=== PATIENT | female | born 1995 | race Caucasian/White ===

== ENCOUNTER 2016-09-09 13:26 | Emergency (ER) | payer OTHER ==
[2016-09-09 13:36] VITALS: BP 115/71; BMI 20.2
[2016-09-09 14:14] LABS: SERUM PREGNANCY TEST, QUAL NEGATIVE <10 mIU/mL
--- NOTE | 2016-09-09 14:23 | DR.GENAD ---
HPI - HPI Comment HPI Comment: PATIENT HAVE HISTORY OF ENDOMETIOSIS. STARTED HAVING PERIOD TODAY AND LOWER ABDOMINAL PAIN, NO DYSURIA. NO FEVER. MAY BE . NO VAGINAL DISCHARGE. - Complaint/Symptoms Chief Complaint Doctors Comments: LOWER ABDOMINAL PAIN, MAY BE . HISTORY ENDOMETRIOSIS. Chief Complaint:: I have endmetriosis and im having really heavy bleeding and pain at this time i may be - Nurses notes reviewed Nurses Notes Review: Yes - Source History Provided: Patient - Mode of Arrival Mode of Arrival: Ambulatory - Timing Onset of Chief Complaint: 09/09/16 Came on: Suddenly - Duration Duration: Constant Duration: Hours - Severity Severity: Moderate PMH - PMH Past Medical History: Yes Past Medical History Comment: Endmetriosis Past Surgical History: Yes Surgical History: Cholecystectomy - Family History History of Family Medical Conditions: Yes Family Medical History: Heart Failure, Hypertension - Social History Does patient currently use any type of tobacco product: Yes Have you used tobacco products in the last 12 months: Yes Type of Tobacco Use: Cigarettes Does any household member use tobacco: No Alcohol Use: None Do you use any recreational Drugs:: No Lives With: Family Lives Where: Home - infectious screening In the last 2 months have you had wt loss of >10#?: NO Have you had fever, night sweats or hemotysis?: No Have you traveled outside the country in the last 6 months?: No Isolation: Standard ROS - Review of Systems Constitutional: No Symptoms Reported Eyes: No Symptoms Reported ENTM: No Symptoms Reported Respiratoy: No Symptoms Reported Cardiovascular: No Symptoms Reported Gastrointestinal/Abdominal: Abdominal Pain, Nausea Genitourinary: Pain, Bleeding. negative: Dysuria, Frequency, Hematuria Neurological: No Symptoms Reported Musculoskeletal: No Symptoms Reported Integumentary: No Symptoms Reported Hematologic/Lymphatic: No Symptoms Reported Endocrine: No Symptoms Reported All Other Systems: Reviewed and Negative PE - Vital Signs Vitals: Temperature 98.9 F Pulse Rate 88 Respiratory Rate 18 Blood Pressure 115/71 O2 Sat by Pulse Oximetry 98 - General Limitations: No Limitations General Appearance: Alert - Head Head Exam: Normal Inspection - Eyes Eye exam: Normal Appearance - ENT ENT Exam: Normal External Ear Exam External Ear Exam: Normal External Inspection Nose Exam: Normal Nose Exam Mouth Exam: Normal Inspection Throat Exam: Normal Inspection - Neck Neck Exam: Normal Inspection - Chest Chest Inspection: Symmetric Chest Wall Rise - Respiratory Respiratory Exam: Normal Lung Sounds Bilat Respiratory Exam: Bilateral Clear to Auscultation - Cardiovascular Cardiovascular Exam: Regular Rate, Normal Rhythm, Normal Heart Sounds - Abdominal Exam Abdominal Exam: Normal Bowel Sounds, Soft, Tenderness Abdominal Tenderness: RLQ, LLQ, Suprapubic, Moderate - Extremities Extremities Exam: Normal Inspection - Back Back Exam: Normal Inspection - Neurologic Neurological Exam: Alert, Oriented X3 - Psychiatric Psychiatric Exam: Normal Affect, Normal Mood - Skin Skin Exam: Normal Color MDM - Differential Diagnosis Differential Diagnosis: ABDOMINAL PAIN, ENDOMETRIOSIS, UTI Course - Treatment Treatment: SEE ORDERS. - Consultation Consultation Comments: DISCUSS PATIENT WITH TAB MACHINE OPERATOR DR KRAUSE OFFICE. WILL SEE PATIENT 09:00 AM TOMORROW. - Education/Counseling Education/Counseling: Patient, Education Educated On: Diagnosis, Needs for Follow Up ROR - Labs Reviewed Laboratory Results Reviewed?: Yes Laboratory: HCG, Qual Negative <10 mIU/mL 09/09/16 13:56 Specimen Type Clean catch urine 09/09/16 14:30 Urine Color Pale yellow (YELLOW) 09/09/16 14:30 Urine Appearance Clear (CLEAR) 09/09/16 14:30 Urine pH 6.5 (5.0 - 8.0) 09/09/16 14:30 Ur Specific [place] 1.010 (1.000-1.030) 09/09/16 14:30 Urine Protein Negative (NEGATIVE) 09/09/16 14:30 Urine Glucose (UA) Negative (NEGATIVE) 09/09/16 14:30 Urine Ketones Negative (NEGATIVE) 09/09/16 14:30 Urine Occult Blood 4+ (NEGATIVE) 09/09/16 14:30 Urine Nitrite Negative (NEGATIVE) 09/09/16 14:30 Urine Bilirubin Negative (NEGATIVE) 09/09/16 14:30 Urine Urobilinogen Normal (NORMAL) 09/09/16 14:30 Ur Leukocyte Esterase Negative (NEGATIVE) 09/09/16 14:30 Urine RBC 3-4 /HPF (NEGATIVE) 09/09/16 14:30 Urine WBC 0-1 /HPF (NEGATIVE) 09/09/16 14:30 Ur Squamous Epith Cells Moderate /HPF (NEGATIVE) 09/09/16 14:30 Amorphous Sediment Trace /HPF (NEGATIVE) 09/09/16 14:30 Urine Bacteria Trace /HPF (NEGATIVE) 09/09/16 14:30 Ur Culture Indicated? No/not indicated 05/30/17 14:30 - Diagnosis Discharge Problem: Abdominal pain Qualifiers: Abdominal location: lower abdomen, unspecified Qualified Code(s): R10.30 - Lower abdominal pain, unspecified - Discharge Plan Disposition: HOME, SELF-CARE Condition: Stable Prescriptions: Hydrocodone-Acet 5 mg/325 mg [Onset 5/325 mg Tab] 1 tab PO Q6H PRN #12 tab PRN Reason: Pain - Follow ups/Referrals Follow ups/Referrals: [facility],None [Primary Care Provider] - 3 days - Instructions Instructions: Endometriosis Additional Instructions: RETURN TO ED IF WORSE. SEE DR. CORDERO AT 09:00 AM TOMORROW.
[2016-09-09 14:37] LABS: BILIRUBIN,URINE NEGATIVE (NEGATIVE); BLOOD/HEMOGLOBIN,URINE 4+ (NEGATIVE); GLUCOSE, URINE NEGATIVE (NEGATIVE); KETONES,URINE NEGATIVE (NEGATIVE); LEUKOCYTE ESTERASE ,URINE NEGATIVE (NEGATIVE); NITRITES,URINE NEGATIVE (NEGATIVE); PH,URINE 6.5 (5.0 - 8.0); PROTEIN,URINE NEGATIVE (NEGATIVE); UROBILINOGEN,URINE NORMAL (NORMAL)
[2016-09-09 14:52] LABS: AMORPHOUS SEDIMENT,UR TRACE /HPF (NEGATIVE); APPEARANCE,URINE CLEAR (CLEAR); BACTERIA,URINE TRACE /HPF (NEGATIVE); COLOR,URINE PALE YELLOW (YELLOW); SQUAMOUS EPITHELIAL CELL,UR MODERATE /HPF (NEGATIVE)
== END 2016-09-09 16:13 | disposition home or self-care (01) ==
LOC: ER 13:32
DX: R10.31 Right lower quadrant pain (principal); N80.8 Other endometriosis
CPT/HCPCS: 36415; 81001; 84703; 99283